=== PATIENT | male | born 1985 | race Caucasian/White ===

== ENCOUNTER 2016-12-18 21:12 | Emergency (ER) | payer SELFPAY ==
[~2016-12-18] VITALS: Ht 172.7 cm; Wt 77.2 kg
[2016-12-18 21:22] VITALS: TEMP 37; Ht 172.7 cm; Wt 77.2 kg
--- NOTE | 2016-12-18 23:14 | EMERGENCY ROOM VISIT NOTE ---
History Report prepared by Yvette: Christin Thomas Under the Supervision of: Dr. Dennis Willoughby M.D. First contact with patient: 22:58 Chief Complaint: GROIN PAIN Stated Complaint: SWELLED LYMPH NODES IN GROIN,ITCHY RASH History of Present Illness The patient is a 31 year old male who presents to the Emergency Room with complaints of worsening groin pain with onset several months ago. He rates his discomfort as a 5/10. The patients groin has been swollen for several months. He has had a rash for almost two months. The rash is itchy. The patient has several blisters on his penis, with onset several weeks ago. The patient states that he is sexually active; he states that he has multiple partners and that he does not use condoms. He denies fevers, pain with urination, blood in his urine. Source of History: patient Onset: several months ago Position: other (groin) Symptom Intensity: 5/10 Quality: other (groin pain) Timing: worsening Associated Symptoms: + rash, No fevers Note: The patient has several blisters on his penis, with onset several weeks ago. He denies pain with urination, blood in his urine. Review of Systems See HPI for pertinent positives & negatives. A total of 10 systems reviewed and were otherwise negative. Past Medical & Surgical Medical Problems: (1) Personal Hist Of Methicillin Resistant Staphylococcus Aureus Old medical records were reviewed. Nurse's notes were reviewed and I agree with. Family History Diabetes mellitus Social History Smoking Status: Current Every Day Smoker Alcohol Use: occasionally Marital Status: in relationship Housing Status: lives with significant other Occupation Status: employed Current/Historical Medications No Active Prescriptions or Reported Meds Allergies Coded Allergies: Penicillins (Verified Allergy, Unknown, ., 12/18/16) Physical Exam Vital Signs Date Time Temp Pulse Resp B/P Pulse Ox O2 Delivery O2 Flow Rate FiO2 12/18/16 23:43 74 20 118/62 98 Room Air 12/18/16 21:22 37.0 82 18 146/74 99 Room Air Physical Exam General: Non ill appearing young male in no acute distress HEENT: Normal cephalic atraumatic. Pupils are equal round and reactive to light. Sclerae are anicteric. Extraocular movements are intact. Oropharynx is pink with moist mucous membranes. No swelling of the mouth lips or tongue. Neck: Supple with a midline trachea. No meningeal signs or stiffness, no JVD or bruits. No Stridor. Chest: Clear to auscultation bilaterally. No wheezes or rhonchi. No increased work of breathing. Heart: regular rate and rhythm. Abdomen: Soft nontender, nondistended without rebound guarding or rigidity. Extremities: No cyanosis clubbing or edema. No calf tenderness or assymetry Spine/Back. Non tender to palpation. No CVA tenderness Skin: Good turgor, he has a red scaly rash on his extremities, does not appear to involve palms or mucous membranes. Neurologic exam: Cranial nerves two through 12 are intact. Motor and sensation are intact and symmetrical throughout. : Similar rash on the penis, no discharge, there are some ulcerations on the shaft of the penis Medical Decision & Procedures Laboratory Results 12/18/16 23:20 Red Blood Count 4.93, Mean Corpuscular Volume 91.3, Mean Corpuscular Hemoglobin 32.7, Mean Corpuscular Hemoglobin Concent 35.8, Mean Platelet Volume 8.7, Neutrophils (%) (Auto) 43.7, Lymphocytes (%) (Auto) 44.8, Monocytes (%) (Auto) 5.7, Eosinophils (%) (Auto) 5.3, Basophils (%) (Auto) 0.3, Neutrophils # (Auto) 5.47, Lymphocytes # (Auto) 5.63, Monocytes # (Auto) 0.72, Eosinophils # (Auto) 0.67, Basophils # (Auto) 0.04 12/18/16 23:20 Test 12/18/16 23:20 White Blood Count 12.56 K/uL (4.8-10.8) Red Blood Count 4.93 M/uL (4.7-6.1) Hemoglobin 16.1 g/dL (14.0-18.0) Hematocrit 45.0 % (42-52) Mean Corpuscular Volume 91.3 fL (80-100) Mean Corpuscular Hemoglobin 32.7 pg (25-34) Mean Corpuscular Hemoglobin Concent 35.8 g/dl (32-36) Platelet Count 406 K/uL (130-400) Mean Platelet Volume 8.7 fL (7.4-10.4) Neutrophils (%) (Auto) 43.7 % Lymphocytes (%) (Auto) 44.8 % Monocytes (%) (Auto) 5.7 % Eosinophils (%) (Auto) 5.3 % Basophils (%) (Auto) 0.3 % Neutrophils # (Auto) 5.47 K/uL (1.4-6.5) Lymphocytes # (Auto) 5.63 K/uL (1.2-3.4) Monocytes # (Auto) 0.72 K/uL (0.11-0.59) Eosinophils # (Auto) 0.67 K/uL (0-0.5) Basophils # (Auto) 0.04 K/uL (0-0.2) RDW Standard Deviation 45.1 fL (36.4-46.3) RDW Coefficient of Variation 13.6 % (11.5-14.5) Immature Granulocyte % (Auto) 0.2 % Immature Granulocyte # (Auto) 0.03 K/uL (0.00-0.02) Red Blood Cell Morphology Unremarkable Anion Gap 7.0 mmol/L (3-11) Est Creatinine Clear Calc Drug Dose 108.8 ml/min Estimated GFR () 122.4 Estimated GFR (Non- 105.6 BUN/Creatinine Ratio 11.6 (10-20) Calcium Level 9.2 mg/dl (8.5-10.1) Total Bilirubin 1.1 mg/dl (0.2-1) Direct Bilirubin 0.1 mg/dl (0-0.2) Aspartate Amino Transf (AST/SGOT) 19 U/L (15-37) Alanine Aminotransferase (ALT/SGPT) 28 U/L (12-78) Alkaline Phosphatase 100 U/L (45-117) Total Protein 8.1 gm/dl (6.4-8.2) Albumin 4.6 gm/dl (3.4-5.0) Lipase 112 U/L (73-393) Rapid Plasma Reagin NONREACTIVE (NONREACT) Laboratory studies as stated above per my review. ED Course 2300: Past medical records reviewed. The patient was evaluated in room C8, and a complete history and physical examination were performed. 0005: Per nursing staff, the patient has eloped. Medical Decision Differentials include, but are not limited to; allergic reaction, sexually transmitted disease, syphilis, contact dermatitis, herpetic lesions. This patient comes in as described above. He was placed in room C8. He has a rash this been going on for several months . he does have some penile lesions that have been going on for a while as well. He has some notes in his groin. He has no lymphadenopathy anywhere else. Blood work was obtained. His RPR was negative therefore this is unlikely syphilis. He has nothing to suggest acute hematologic process based on his blood work. he has no acute electrode or metabolic abnormalities. I did talk to him about doing swabs of the penile lesions and a penile swab as well. While we are waiting for the blood results the patient eloped and left the ER without telling us. I was therefore unable to complete the workup or give the patient any further treatment. He did not tell the nurses but just left. Impression Primary Impression: Rash Additional Impression: Genital lesion, male Scribe Attestation The scribe's documentation has been prepared under my direction and personally reviewed by me in its entirety. I confirm that the note above accurately reflects all work, treatment, procedures, and medical decision making performed by me. Departure Information Dispostion Other (eloped) Prescriptions No Active Prescriptions or Reported Meds Referrals Ousmane Marion M.D. (PCP) Patient Instructions My [facility] Problem Qualifiers
[2016-12-18 23:43] VITALS: BP 118/62; PULSE 74; O2SAT 98
[2016-12-19 00:24] LABS: BUN/CREATININE RATIO 11.6 (10-20); CALCIUM 9.2 mg/dl (8.5-10.1); CREATININE 0.96 mg/dl (0.60-1.40); POTASSIUM 3.7 mmol/L (3.5-5.1)
[2016-12-19 00:45] LABS: BASO % 0.3 %; BASO ABS # 0.04 K/uL (0-0.2); COMPLETE YES; EOS % 5.3 %; IG% 0.2 %; LYMPH % 44.8 %; LYMPH ABS # 5.63 K/uL (1.2-3.4); MONO % 5.7 %; NEUT % 43.7 %
[2016-12-19 00:54] LABS: MEAN CELL VOLUME 91.3 fL (80-100); MEAN CORPUSCULAR HEMOGLOBIN 32.7 pg (25-34); MEAN CORPUSCULAR HGB CONC 35.8 g/dl (32-36); MEAN PLATELET VOLUME 8.7 fL (7.4-10.4); PLATELET COUNT 406 K/uL (130-400); RED BLOOD COUNT 4.93 M/uL (4.7-6.1); WHITE BLOOD COUNT 12.56 K/uL (4.8-10.8)
== END 2016-12-19 00:06 | disposition left against medical advice (07) ==
LOC: C.EDB 21:14 → C.EDC 12-19 00:06
DX: R21 Rash and other nonspecific skin eruption (principal); L98.9 Disorder of the skin and subcutaneous tissue, unspecified; F17.200 Nicotine dependence, unspecified, uncomplicated; Z88.0 Allergy status to penicillin; Z83.3 Family history of diabetes mellitus

== ENCOUNTER 2017-09-25 18:08 | Emergency (ER) | payer SELFPAY ==
[~2017-09-25] VITALS: Ht 172.7 cm; Wt 77.6 kg
[2017-09-25 18:09] VITALS: TEMP 36.8; Ht 172.7 cm; Wt 77.6 kg
[2017-09-25] MEDS ORDERED: ACET-1256 PO (18:23)
[2017-09-25] MEDS ORDERED: IBUP-1050 PO (18:23)
[2017-09-25] MEDS ORDERED: NORCO 5/325MG HOME PACK PO ONE (18:30)
[2017-09-25] MEDS ORDERED: CLINDAMYCIN 150MG HOME PACK PO ONE (18:30)
[2017-09-25] MEDS ORDERED: CLIN300C10 PO (18:31)
[2017-09-25] MEDS ORDERED: HYDR-5688 PO (18:31)
[2017-09-25 18:59] VITALS: BP 134/76; PULSE 76; O2SAT 97
--- NOTE | 2017-09-25 22:13 | EMERGENCY ROOM VISIT NOTE ---
ED Visit Note First contact with patient: 18:12 CHIEF COMPLAINT: Toothache. HISTORY OF PRESENT ILLNESS: Mr. Ybarra is a 32-year-old white male who ambulates into the complaining of right maxillary dental pain. He reports a progressive dental pain that started approximately 24 hours ago for over the right maxillary area. Reports initially the pain was mild but has gradually became more severe and radiates to the face. Currently he is complaining of sharp and throbbing pain in the area of tooth 3 and 4. His.is pain does radiate through the teeth and into his face in the maxillary sinus. His pain worsens with palpation and chewing. He reports he has been using ibuprofen without relief of his discomfort. He has not identified any alleviating factors related to the pain. Associated with his pain he did report he looked at the area today and saw a abscess. He also notes mild swelling on the maxillary area that side of his face. He denies any associated symptoms including fevers, chills, sweats, recent dental trauma, sore throat, difficulty swallowing, voice changes, drooling. REVIEW OF SYSTEMS: As noted above in History of Present Illness. 8 body systems were reviewed with this patient and found to be negative unless noted above otherwise. PMH: MRSA infection of left hand. CURRENT MEDICATION: Patient denies.. ALLERGIES TO MEDICATION: Penicillin. SOCIAL HISTORY: Patient is currently employed; he feels safe in his home environment; he admits to tobacco use and denies alcohol use. PHYSICAL EXAM: Vital Signs: Date Time Temp Pulse Resp B/P (MAP) Pulse Ox O2 Delivery O2 Flow Rate FiO2 09/25/17 18:59 76 18 134/76 97 09/25/17 18:09 36.8 82 16 159/82 100 Room Air General: 32 year-old white male in moderate distress due to pain, nontoxic appearing, afebrile and hemodynamically stable. Neurological: Awake, alert and oriented to person, place and time. Answering questions appropriately and following commands. Normal gait. Good hand eye coordination. Skin: Warm, dry and pink. Mild swelling of the right maxillary area was noted under his pain but no erythema. HEENT: Atraumatic and normocephalic. Oral cavity is moist and pink. Airway is patent. Uvula is midline and no abscesses are seen. Speech is normal. Patient has a mouth full of decaying teeth over the maxillary and mandibular area. Multiple teeth have are been extracted. Many caries are present. Over his area of pain the teeth are tender. The gingiva is erythematous. I do not appreciate any abscess at this time. There is no active drainage from the area of erythema. No cervical or submandibular lymphadenopathy. ED COURSE: Patient is assessed as noted above. Patient's medication list was reviewed. Patient is educated about his findings and instructed on his treatment plan; he verbalizes understanding and agreement with this plan. CLINIC IMPRESSION: Dental abscess. DISPOSITION: Patient discharged home in stable condition; prior to departure he was reassessed and subjectively reported he was feeling the same. PLAN: Patient was prescribed clindamycin 300 mg 4 times a day for 10 days. Patient was placed on a sliding pain medication scale of ibuprofen, see acetaminophen and [place]; his name was checked on state database and no red flags were noted and he was educated on appropriate narcotic precautions. Patient did inform me that he did contact the dentist and has follow-up on October 10. Patient was encouraged return ED for worsening pain, worsening signs of infection or any new/concerning symptoms.
== END 2017-09-25 18:50 | disposition home or self-care (01) ==
LOC: C.EDB 18:09 → C.EDD 18:50
DX: K04.7 Periapical abscess without sinus (principal); K02.9 Dental caries, unspecified; F17.200 Nicotine dependence, unspecified, uncomplicated

== ENCOUNTER 2018-05-02 14:17 | Emergency (ER) | payer SELFPAY ==
[~2018-05-02] VITALS: Ht 172.7 cm; Wt 75.1 kg
[~2018-05-02 14:17] MED LIST: ACET-1256 PO; CLIN300C10 PO; IBUP-1050 PO
[2018-05-02 14:21] VITALS: TEMP 36.8; Ht 172.7 cm; Wt 75.1 kg
[2018-05-02] MEDS ORDERED: OPTIRAY 320 IV PRN (15:00)
[2018-05-02 15:11] LABS: BASO % 0.5 %; BASO ABS # 0.05 K/uL (0-0.2); EOS % 3.2 %; EOS ABS # 0.35 K/uL (0-0.5); HEMATOCRIT 44.3 % (42-52); HEMOGLOBIN 15.3 g/dL (14.0-18.0); IG# 0.03 K/uL (0.00-0.02); LYMPH % 31.9 %; LYMPH ABS # 3.47 K/uL (1.2-3.4); MEAN CORPUSCULAR HEMOGLOBIN 30.7 pg (25-34); MEAN CORPUSCULAR HGB CONC 34.5 g/dl (32-36); MEAN PLATELET VOLUME 8.4 fL (7.4-10.4); MONO % 3.9 %; MONO ABS # 0.42 K/uL (0.11-0.59); NEUT % 60.2 %; NEUT ABS # 6.56 K/uL (1.4-6.5); PLATELET COUNT 414 K/uL (130-400); RED CELL DISTRIBUTION WIDTH CV 13.3 % (11.5-14.5); RED CELL DISTRIBUTION WIDTH SD 43.4 fL (36.4-46.3); WHITE BLOOD COUNT 10.88 K/uL (4.8-10.8)
[2018-05-02 15:41] LABS: CALCIUM 9.2 mg/dl (8.5-10.1); CREATININE 1.08 mg/dl (0.60-1.40); POTASSIUM 3.8 mmol/L (3.5-5.1)
--- NOTE | 2018-05-02 16:09 | DIAGNOSTIC IMAGING REPORT ---
CT SCAN OF THE NECK WITH IV CONTRAST CLINICAL HISTORY: Throat pain. COMPARISON STUDY: No priors. TECHNIQUE: Following the IV administration of 91 cc of Optiray 320, CT scan of the soft tissues of the neck was performed from the skull base to the upper chest. Images are reviewed in the axial, sagittal, and coronal planes. IV contrast was administered without complication. A dose lowering technique was utilized adhering to the principles of ALARA. CT DOSE: 454.26 mGy.cm FINDINGS: Pharynx: The nasopharynx, oropharynx, and laryngeal pharynx are normal in appearance. The pharyngeal airway is widely patent. There is no evidence of mass lesion. The vocal cords are symmetric. The parapharyngeal fat is well maintained. The prevertebral/retropharyngeal soft tissues are within normal limits. There are small calcified tonsilliths. No tonsillar abscess is seen. The epiglottis is normal. Lymphadenopathy: There are shotty cervical lymph nodes. These are not pathologically enlarged by size criteria. Thyroid: Normal in size and attenuation. Salivary glands: The parotid and submandibular glands are within normal limits. Brain parenchyma: The visualized brain parenchyma at the skull base is normal in appearance. Vascular structures: The carotid arteries and jugular veins are widely patent bilaterally. Skeletal structures: Imaged portions of the calvarium at the skull base are within normal limits. The cervical spine appears intact. Orbits: The bony orbits are intact. Orbital contents are normal in appearance. Sinuses and mastoids: Mild mucosal thickening is seen in the maxillary antra. The remaining visualized paranasal sinuses are clear. The mastoid air cells are well pneumatized. Lung apices: Visualized apical lung parenchyma is clear. IMPRESSION: 1. No acute abnormality is identified. 2. There are shotty cervical lymph nodes, possibly on a reactive basis. These are not pathologically enlarged by size criteria. Clinical correlation will be required. Electronically signed by: Brady Ramirez M.D. 05/02/2018 4:07 PM Dictated Date/Time: 05/02/2018 4:02 PM
[2018-05-02 16:30] VITALS: BP 132/65; PULSE 56; O2SAT 97
--- NOTE | 2018-05-03 15:23 | EMERGENCY ROOM VISIT NOTE ---
ED Visit Note First contact with patient: 14:31 Chief Complaint: I am having swollen lymph nodes and pain in my throat. History of Present Illness: Mr. Ybarra is a 33-year-old white male who ambulates into the ED complains of sensations of swollen lymph nodes and pain in his throat. Patient reports for the last 3 weeks he has been having his current symptoms. He describes his throat discomfort as an achy sensation. He rates his discomfort 7/10. His pain is nonradiating. His pain is located over the anterior cervical chain area and the submandibular area bilaterally. His pain worsens with palpation and rotational movements of the head. He has not identified any alleviating factors related to the pain. He reports he has been intermittently using ibuprofen without relief; his last pain medications were approximately 4 days ago. Associated with his pain he reports intermittently he developed pain that starts in the preauricular area and radiates to the top of his head; he describes this as a transient sensation. He specifically expresses concerns for possible cancer; further questions he had a friend that just from stomach cancer. He denies any associated fevers, chills, sweats, skin eruptions, skin color changes, upper respiratory tract symptoms, recent dental trauma/surgery, sore throats, voice changes, difficulty swallowing, difficulty speaking, neck pain/ stiffness, upper respiratory tract symptoms, shortness of breath,, chest pain, abdominal pain, decreased appetite, nausea/vomiting, recent weight loss/gain, personal history of previous cancers. Review of Systems: As noted above in history of present illness. All body systems were reviewed and found to be negative as noted above. Past Medical History: MRSA infection, dental abscess. Current Medications: Patient denies. Allergies to Medications: Penicillin. Social History: Patient is currently employed; he feels safe in his home environment; he admits to tobacco alcohol use; 1.5 packs per day, and denies alcohol use. Physical Examination: Vital Signs: Date Time Temp Pulse Resp B/P (MAP) Pulse Ox O2 Delivery O2 Flow Rate FiO2 05/02/18 16:30 56 17 132/65 97 Room Air 05/02/18 14:21 36.8 63 18 134/71 100 Room Air GENERAL: 33-year-old male in mild distress due to pain, nontoxic-appearing, afebrile and hemodynamically stable. NEUROLOGICAL: Awake, alert and oriented to person, place and time. Answering questions appropriately and following commands. Normal gait. Good hand eye coordination. No focal motor or sensory deficits. SKIN: Warm, dry and pink. No soft tissue eruptions or trauma noted. HEENT: Atraumatic and normocephalic. PERRLE. Sclera white and conjunctiva pink. No drainage from naris. Oral cavity moist and pink. Airway is patent. Patient has severe dental disease with multiple caries throughout the mouth. The gingiva is not erythematous or edematous. There are no palpable abscesses. Pharynx is nonerythematous or edematous. Speech normal. No cervical or submandibular lymphadenopathy. Tenderness along the anterior cervical chain bilaterally and in the submandibular area. Trachea midline. No auditory or auscultatory stridor. No laryngeal tenderness. No jugular venous distention. BACK: No tenderness over the bony spine. Full range of motion of the cervical spine. THORAX: Lungs sounds are clear to auscultation and equal bilaterally with symmetrical chest wall. No wheezing, rales or rhonchi. HEART: Regular rate and rhythm. No gallops, rubs or murmurs are appreciated. ABDOMEN: Flat, soft and nontender. Positive bowel sounds in all quadrants. No guarding, rigidity or organomegaly. EXTREMITIES: Moves all extremities well on command and with purpose. All distal neurovascular statuses are intact and equal bilaterally. ED Course: Patient is assessed as noted above. Patient's medication list was reviewed. Laboratory Testing: Test 05/02/18 15:00 Range/Units White Blood Count 10.88 4.8-10.8 K/uL Red Blood Count 4.98 4.7-6.1 M/uL Hemoglobin 15.3 14.0-18.0 g/dL Hematocrit 44.3 42-52 % Mean Corpuscular Volume 89.0 80-100 fL Mean Corpuscular Hemoglobin 30.7 25-34 pg Mean Corpuscular Hemoglobin Concent 34.5 32-36 g/dl Platelet Count 414 130-400 K/uL Mean Platelet Volume 8.4 7.4-10.4 fL Neutrophils (%) (Auto) 60.2 % Lymphocytes (%) (Auto) 31.9 % Monocytes (%) (Auto) 3.9 % Eosinophils (%) (Auto) 3.2 % Basophils (%) (Auto) 0.5 % Neutrophils # (Auto) 6.56 1.4-6.5 K/uL Lymphocytes # (Auto) 3.47 1.2-3.4 K/uL Monocytes # (Auto) 0.42 0.11-0.59 K/uL Eosinophils # (Auto) 0.35 0-0.5 K/uL Basophils # (Auto) 0.05 0-0.2 K/uL RDW Standard Deviation 43.4 36.4-46.3 fL RDW Coefficient of Variation 13.3 11.5-14.5 % Immature Granulocyte % (Auto) 0.3 % Immature Granulocyte # (Auto) 0.03 0.00-0.02 K/uL Sodium Level 137 136-145 mmol/L Potassium Level 3.8 3.5-5.1 mmol/L Chloride Level 101 98-107 mmol/L Carbon Dioxide Level 30 21-32 mmol/L Anion Gap 6.0 3-11 mmol/L Blood Urea Nitrogen 6 7-18 mg/dl Creatinine 1.08 0.60-1.40 mg/dl Est Creatinine Clear Calc Drug Dose 95.0 ml/min Estimated GFR () 104.7 Estimated GFR (Non- 90.3 BUN/Creatinine Ratio 5.5 10-20 Random Glucose 101 70-99 mg/dl Calcium Level 9.2 8.5-10.1 mg/dl Soft Tissue Neck CT with Contrast: Was reviewed by myself and read by the radiologist showing no acute abnormalities, shoddy cervical lymph nodes that are not pathologically enlarged. Radiologist felt these were mostly reactive. Patient was offered pain medication and refused. Patient was educated about today's findings and instructed on his treatment plan ; he verbalized understanding and agreement with this plan. Clinical Impression: Throat pain. Decision-Making: Initially my differential diagnosis I considered dental abscess , deep tissue infections, lymphangitis, lymphatic cancers and other causes. Disposition: Patient discharged home in stable condition; prior to departure he was reassessed and subjectively reported he was feeling better and rated his discomfort 2/10. Plan: Patient was encouraged alternate ibuprofen and acetaminophen every 3 hours as needed for persistent pain. Patient was encouraged to keep his teeth clean with brushing, flossing and gargling with salt water 5 times a day. Patient was encouraged to stop smoking and save the money from his smoking for definitive care and treatment of his dental disease. Patient was encouraged return the ED for worsening pain, fevers, inability to swallow, painful talking, drooling or any new/concerning symptoms.
== END 2018-05-02 16:43 | disposition home or self-care (01) ==
LOC: C.EDB 14:18 → C.EDD 16:43
DX: R07.0 Pain in throat (principal); F17.210 Nicotine dependence, cigarettes, uncomplicated; Z88.0 Allergy status to penicillin